=== PATIENT | female | born 2000 | race Caucasian/White ===

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

== ENCOUNTER 2024-07-24 17:30 | Emergency (ER) | payer BC ==
[~2024-07-24] VITALS: Ht 157.5 cm; Wt 60.1 kg
[2024-07-24 17:48] VITALS: BP 113/80; PULSE 87; RESP 14; TEMP 98; O2SAT 97
[2024-07-24 18:41] LABS: BILIRUBIN,URINE NEGATIVE (Neg); CLARITY,URINE CLOUDY (Clear); COLOR,URINE YELLOW (Yellow); GLUCOSE, URINE NEGATIVE (Neg); KETONES,URINE NEGATIVE (Neg); LEUKOCYTE ESTERASE ,URINE LARGE (Neg); NITRITES, URINE NEGATIVE (Neg); OCCULT BLOOD,URINE MODERATE (Neg); PROTEIN,URINE NEGATIVE (Neg); UROBILINOGEN,URINE 0.2 E.U/dL (0.2-1.0)
[2024-07-24 18:42] LABS: URINE HCG NEGATIVE (NEG)
[2024-07-24 18:47] LABS: UA COLLECTION TYPE CLN CATCH MIDSTREAM
[2024-07-24 18:52] LABS: BACTERIA,URINE 1+ /HPF (Neg); MUCUS STRANDS FEW /LPF (Neg); SQUAMOUS EPITHELIAL CELL,UR MODERATE /LPF (FEW); TRANSITIONAL EPI CELLS,URINE FEW /HPF; WBC,URINE 20-30 /HPF (0-4)
[2024-07-24 18:53] LABS: RENAL CELLS, URINE MODERATE /HPF
[2024-07-24] MEDS ORDERED: DIF150T PO (20:27)
== END 2024-07-24 20:36 | disposition home or self-care (01) ==
LOC: ER 17:31
DX: N76.0 Acute vaginitis (principal); N23 Unspecified renal colic; Z88.1 Allergy status to other antibiotic agents; Z88.2 Allergy status to sulfonamides
CPT/HCPCS: 36415; 81001; 81025; 87088; 87210; 87491; 99284